=== PATIENT | male | born 1945 | race Two or more races ===

== ENCOUNTER 2023-11-18 11:51 | Emergency (ER) | payer OTHER ==
[~2023-11-18] VITALS: Ht 177.8 cm; Wt 66.1 kg
[2023-11-18] MEDS: HYDROcodone-ACET 5/325MG TAB PO ONE (15:33)
[2023-11-18 16:12] LABS: Basophils # (auto) 0.1 10 ^3/uL (0-0.2); Basophils % (auto) 0.4 % (0.0-2.0); Eosinophils # (auto) 0 10 ^3/uL (0-0.8); Hematocrit 40.8 % (41.0-53.0); Hemoglobin 13.4 g/dL (13.5-17.5); Lymphocytes # (auto) 1.6 10 ^3/uL (0.4-5.4); Lymphocytes % (auto) 9.8 % (10.0-50.0); Mean Corpuscular Hemoglobin 29.4 pg (28.0-32.0); Mean Corpuscular Volume 89.3 fL (80.0-100.0); Monocytes # (auto) 1.1 10 ^3/uL (0-1.3); Monocytes % (auto) 6.4 % (0.0-12.0); Neutrophils # (auto) 13.8 10 ^3/uL (1.6-8.6); Neutrophils % (auto) 83.4 % (37.0-80.0); Red Blood Cells 4.56 10^6/uL (4.5-5.90); Red Cell Distribution Width 13.8 % (11.8-14.3); White Blood Cell 16.6 10^3/uL (4.4-10.8)
[2023-11-18 16:43] LABS: Alanine Aminotransferase 21 U/L (7-40); Albumin 4.1 g/dL (3.2-4.8); Alkaline Phosphatase 113 U/L (46-116); Anion Gap 9 (5-15); Aspartate Aminotransferase 24 U/L (13-40); BUN/Creatinine Ratio 18.4 (10.0-20.0); Blood Urea Nitrogen 16 mg/dL (9-23); Calcium 8.6 mg/dL (8.7-10.4); Carbon Dioxide 24 mmol/L (20-30); Chloride 102 mmol/L (98-107); Glucose 112 mg/dL (74-106); Lipase 56 U/L (12-53); Potassium 4.6 mmol/L (3.5-5.1); Sodium 135 mmol/L (136-145)
[2023-11-18 16:44] LABS: Bilirubin, Total 1.1 mg/dL (0.2-1.0); Total Protein 6.9 g/dL (5.7-8.2)
[2023-11-18 20:51] VITALS: BP 127/72; PULSE 95; RESP 18; TEMP 97.8; O2SAT 96
== END 2023-11-18 21:28 | disposition short-term general hospital (02) ==
LOC: ER 11:51
DX: K12.2 Cellulitis and abscess of mouth (principal); M27.2 Inflammatory conditions of jaws
CPT/HCPCS: 36415; 70486; 80053; 83605; 83690; 85025

== ENCOUNTER 2025-06-08 17:54 | Emergency (ER) | payer OTHER ==
[~2025-06-08] VITALS: Ht 177.8 cm; Wt 72.7 kg
--- NOTE | 2025-06-08 18:17 | ED.PDOC ---
Altered Mental Status HPI Comments This is a 79 year old male BIB family presenting to the ED with chief complaint of ALOC. Patient's son reports that the patient has been increasingly confused and altered over the past month. Son relays that the patient then had multiple ground level falls today when trying to get out of bed multiple times despite him and his mother's insistence that the patient stay in bed. Son denies any head injury, medication overdose, dizziness, N/V, fever, chills, or chest pain. Chief Complaint: ALOC Time Seen by MD: 18:14 Primary Care Provider: ? Reviewed Notes: Nurses Notes, Medications, Allergies Allergies: Coded Allergies: NO KNOWN ALLERGIES (Unverified , 11/18/23) Information Source: Patient, Relative (Child), Spouse Mode of Arrival: Ambulatory Severity: Moderate Timing: Hours Duration: Since onset Prehospital treatment: None Quality: Decreased Alertness, Change in Behavior, Confusion Recent: None Past Medical History PAST MEDICAL HISTORY: High Lipids Surgical History (Other): Prostatectomy Family History Family History: Reviewed,noncontributory to illness, No family hx of Cancer, No family hx of DM, No family hx of Heart wilson, No family hx of HTN, No family hx ofKidney wilson, No family hx of Liver wilson, No family hx of Lung wilson, No family hx of Stroke Social History Smoker: Non-Smoker Alcohol: Denies ETOH Use Drugs: Denies Drug Use Lives In: Home Constitutional: denies: chills, diaphoresis, fatigue, fever, malaise, sweats, weakness, others EENTM: denies: blurred vision, double vision, ear bleeding, ear discharge, ear drainage, ear pain, ear ringing, eye pain, eye redness, hearing loss, mouth pain, mouth swelling, nasal discharge, nose bleeding, nose congestion, nose pain, photophobia, tearing, throat pain, throat swelling, voice changes, others Respiratory: denies: cough, hemoptysis, orthopnea, SOB at rest, shortness of breath, SOB with excertion, stridor, wheezing, others Cardiovascular: denies: chest pain, dizzy spells, diaphoresis, Dyspnea on exertion, edema, irregular heart beat, left arm pain, lightheadedness, pal pitations, PND, syncope, others Gastrointestinal: denies: abdomen distended, abdominal pain, blood streaked bowels, constipated, diarrhea, dysphagia, difficulty swallowing, hematemesis, melena, nausea, poor appetite, poor fluid intake, rectal bleeding, rectal pain, vomiting, others Genitourinary: denies: burning, dysuria, flank pain, frequency, hematuria, incontinence, penile discharge, penile sore, pain, testicle pain, testicle swelling, urgency, others Neurological: denies: dizziness, fainting, headache, left sided numbness, left sided weakness, numbness, paresthesia, pre-existing deficit, right sided numbness, right sided weakness, seizure, speech problems, tingling, tremors, weakness, others Musculoskeletal: denies: back pain, gout, joint pain, joint swelling, muscle pain, muscle stiffness, neck pain, others Integumetry: denies: bruises, change in color, change in hair/nails, dryness, laceration, lesions, lumps, rash, wounds, others Allergic/Immunocompromised: denies: Difficulty Healing, Frequent Infections, Hives, Itching, others Hematologic/Lymphatic: denies: anemia, blood clots, easy bleeding, easy bru ising, swollen glands, others Endocrine: denies: excessive hunger, excessive sweating, excessive thirst, e xcessive urination, flushing, intolerance to cold, intolerance to heat, unexplained weight gain, unexplained weight loss, others Psychiatric: denies: anxiety, bipolar disorder, depression, hopeless, panic disorder, schizophrenia, sleepless, suicidal, others Unable to Obtain due to: Altered Mental Status All Other Systems: Reviewed and Negative Physical Exam General Appearance: Moderate Distress, Other (The patient is confused) HEENT: Normal ENT Inspection, Pharynx Normal, TMs Normal Neck: Full Range of Motion, Non-Tender, Normal, Normal Inspection Respiratory: Chest Non-Tender, Lungs Clear, No Accessory Muscle Use, No Respiratory Distress, Normal Breath Sounds Cardiovascular: No Edema, No JVD, No Murmur, No Gallop, Normal Peripheral Pulses, Regular Rate/Rhythm Breast Exam: Deferred Gastrointestinal: No Organomegaly, Non Tender, No Pulsatile Mass, Normal Bowel Sounds, Soft Genitalia: Deferred Pelvic: Deferred Rectal: Deferred Extremities: No calf tenderness, Normal capillary refill, No pedal edema Musculoskeletal : Apperance: Normal 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 Was a procedure done?: No Differential Diagnosis (ALOC) Differential Diagnosis: Encephalopathy, Seizure, Closed Head Injury, CVA, Other (Altered mental status) X-Ray, Labs, Meds, VS Vital Signs Date Time Temp Pulse Resp B/P (MAP) Pulse Ox O2 Delivery O2 Flow Rate FiO2 06/08/25 20:30 97.6 67 14 148/63 (91) 94 97.6 06/08/25 18:17 82 06/08/25 18:07 82 06/08/25 17:56 98.2 95 16 138/94 86 98.2 Lab Test 06/08/25 18:22 Range/Units White Blood Count 8.3 4.4-10.8 10^3/uL Red Blood Count 4.74 4.5-5.90 10^6/uL Hemoglobin 14.7 13.5-17.5 g/dL Hematocrit 42.8 41.0-53.0 % Mean Corpuscular Volume 90.3 80.0-100.0 fL Mean Corpuscular Hemoglobin 31.0 28.0-32.0 pg Mean Corpuscular Hemoglobin Concent 34.4 32.0-36.0 g/dL Red Cell Distribution Width 13.5 11.8-14.3 % Platelet Count 195 140-450 10^3/uL Mean Platelet Volume 7.8 6.9-10.8 fL Neutrophils (%) (Auto) 68.2 37.0-80.0 % Lymphocytes (%) (Auto) 22.0 10.0-50.0 % Monocytes (%) (Auto) 7.7 0.0-12.0 % Eosinophils (%) (Auto) 1.4 0.0-7.0 % Basophils (%) (Auto) 0.7 0.0-2.0 % Neutrophils # (Auto) 5.7 1.6-8.6 10 ^3/uL Lymphocytes # (Auto) 1.8 0.4-5.4 10 ^3/uL Monocytes # (Auto) 0.6 0-1.3 10 ^3/uL Eosinophils # (Auto) 0.1 0-0.8 10 ^3/uL Basophils # (Auto) 0.1 0-0.2 10 ^3/uL Nucleated Red Blood Cells 0.0 % Sodium Level 137 136-145 mmol/L Potassium Level 3.9 3.5-5.1 mmol/L Chloride Level 103 98-107 mmol/L Carbon Dioxide Level 24 20-31 mmol/L Anion Gap 10 5-15 Blood Urea Nitrogen 11 9-23 mg/dL Creatinine 0.85 0.700-1.30 mg/dL Glomerular Filtration Rate Calc 89 >90 mL/min BUN/Creatinine Ratio 12.9 10.0-20.0 Serum Glucose 112 H 74-106 mg/dL Calcium Level 9.0 8.7-10.4 mg/dL IV Hep-Lock was established. The patient's CBC is within normal limits The chemistry panel is within normal limits CAT scan of the head shows: IMPRESSION: 1. No acute territorial infarct, intracranial hemorrhage, or mass effect. 2. Age-related involutional changes. Chronic microvascular changes. 3. If clinical symptoms persist, MRI may be beneficial in further evaluation. The patient is somewhat confused and every time he stands up he is having episodes of falls. The patient was here in the emergency department's and accidentally got up and fell down on the floor. The patient denies any head trauma at that time. The patient is being admitted. Images Reviewed?: Images reviewed and evaluated by me Time of 1ST Reevaluation: 20:40 Reevaluation 1ST: Unchanged Patient Education/Counseling: Other (The patient is somewhat confused) Family Education/Counseling: Diagnosis, Treatment, Prognosis SEPSIS Sepsis Screen Date sepsis recognized/suspect: Jun 08, 2025 Time Sepsis recognized/suspect: 1755 Recent Procedure: No On Antibiotic Therapy: No Respiratory Rate >20: No Heart Rate >90: No Temp<36 C (96.8 F) or >38.3 C: No SBP <90 or MAP <65 mmHG: No New Acute Mental Status Change: No Is the patient on CPAP, BIPAP,: No Physician Orders Urinalysis (06/08/25 18:14) Head Without Contrast (06/08/25 18:14) Behavioral Health Technician (06/08/25 18:14) Pulse Oximetry (06/08/25 18:14) Blood Pressure (06/08/25 18:14) Heplock Iv (06/08/25 18:14) Vital Signs Date Time Temp Pulse Resp B/P (MAP) Pulse Ox O2 Delivery O2 Flow Rate FiO2 06/08/25 20:30 97.6 67 14 148/63 (91) 94 97.6 06/08/25 18:17 82 06/08/25 18:07 82 06/08/25 17:56 98.2 95 16 138/94 86 98.2 Laboratory Tests Test 06/08/25 18:22 White Blood Count 8.3 10^3/uL (4.4-10.8) Departure 1 Departure Time of Disposition: 20:39 Impression: Primary Impression: Autonomic dysfunction Additional Impressions: Generalized weakness Confusion Disposition: ADMITTED INPATIENT Admit to: [facility] Condition: Fair Critical Care Note Critical Care Time?: Yes (35 min-critical care time only) Stability Stability form required: Yes Unstable for transfer: Telemetry monitoring (Telemetry monitoring required), ED Physician Assesment (Clinical assesment) Heart Score Heart Score: Heart Score Response (Comments) Value History N/A 0 EKG N/A 0 Age N/A 0 Risk Factors N/A 0 Troponin N/A 0 Total 0 I personally scribed for WANDA FRIEDMAN MD ([email or web address]) on 06/08/25 at 18:17. Electronically submitted by Lucius Velasquez ([email or web address]). WANDA FRIEDMAN MD Jun 08, 2025 18:17
[2025-06-08 18:40] LABS: Hematocrit 42.8 % (41.0-53.0); Hemoglobin 14.7 g/dL (13.5-17.5); Mean Corpuscular Hemoglobin 31.0 pg (28.0-32.0); Mean Corpuscular Volume 90.3 fL (80.0-100.0); Nucleated Red Blood Cells % 0.0 %
[2025-06-08 18:50] LABS: Chloride 103 mmol/L (98-107); Potassium 3.9 mmol/L (3.5-5.1); Sodium 137 mmol/L (136-145)
[2025-06-08 18:51] LABS: Anion Gap 10 (5-15); Calcium 9.0 mg/dL (8.7-10.4); Carbon Dioxide 24 mmol/L (20-31)
[2025-06-08 18:56] LABS: BUN/Creatinine Ratio 12.9 (10.0-20.0); Blood Urea Nitrogen 11 mg/dL (9-23)
[2025-06-08 18:59] LABS: Glucose 112 mg/dL (74-106)
--- NOTE | 2025-06-08 19:03 | ECG ---
[facility] Test Date: 2025-06-08 Test Time: 18:07:15 Pat Name: ELICEO MCMANUS Department: ED Room: Gender: M Occupational Therapy Technician: DR RICHARD: 1945 Requested By: WANDA FRIEDMAN Order Number: [id number] Reading MD: Measurements Intervals [place] Rate: 82 P: 63 WV: 162 QRS: -23 QRSD: 90 T: 51 QT: 371 QTc: 434 Interpretive Statements Sinus rhythm Borderline left axis deviation Low voltage, precordial leads Abnormal R-wave progression, early transition Baseline wander in lead(s) II,V3,V4 Please click the below link to view image of tracing.
--- NOTE | 2025-06-08 19:25 | DVH ---
EXAM: CT HEAD WITHOUT CONTRAST INDICATION: FERNANDEZ TECHNIQUE: CT of the head without intravenous contrast. Radiation Dose : 1. Head: CT Dose: CTDI volume is 48.15 mGy. Dose-length product is 847.18 mGy*cm The dose indicators for CT are the volume Computed Tomography (CT) Dose Index (CTDIvol) and the Dose Length Product (DLP), and are measured in units of mGy and mGy-cm, respectively. These indicators are not patient dose, but values generated from the CT scanner acquisition factors. The report includes radiation exposure data for exposures received during this examination. COMPARISON: CT MAXILLOFACIAL WITHOUT on DOS: 11/18/23 FINDINGS: No acute territorial infarct, intracranial hemorrhage, or mass effect. There are global involutional changes with compensatory prominence of the ventricles and sulci. Patchy periventricular and subcorti candy white matter hypoattenuation is nonspecific but may be related to small vessel ischemic disease. The orbits are normal. The paranasal sinuses and mastoid air cells are clear. The osseous structures are unremarkable. IMPRESSION: 1. No acute territorial infarct, intracranial hemorrhage, or mass effect. 2. Age-related involutional changes. Chronic microvascular changes. 3. If clinical symptoms persist, MRI may be beneficial in further evaluation. Radiation optimization: All CT scans at this facility use at least one of these dose optimization lynda hniques: automated exposure control mA and/or kV adjustment per patient size (includes targeted exam s where dose is matched to clinical indication) or iterative reconstruction.
[2025-06-08 22:10] LABS: Urine Protein, UAD Negative (Negative)
[2025-06-08 22:47] LABS: Amphetamine Screen, Urine Neg (NEGATIVE); Barbiturate Scree,Urine Neg (NEGATIVE); Benzodiazephine Screen, Urine Neg (NEGATIVE); Cocaine Screen, Urine Neg (NEGATIVE); Opiate Scree,Urine Neg (NEGATIVE)
[2025-06-08 22:48] LABS: Cannabinoid Screen, Urine Neg (NEGATIVE); Phencyclidine Screen, Urine Neg (NEGATIVE)
[2025-06-08 22:51] LABS: Free T4 (Free Thyroxine) 1.02 ng/dL (0.89-1.76)
[2025-06-08] MEDS: HALOPERIDOL LACTATE 5 MG/ML INJ VIAL IM ONE ×2 (23:19→23:40)
[2025-06-09] MEDS: MIRTAZAPINE 30 MG TAB PO ONE (00:35)
[2025-06-09 08:56] VITALS: BP 150/88; PULSE 92; RESP 17; TEMP 98.6; O2SAT 94
--- NOTE | 2025-06-09 19:45 | DVHINCON2 ---
DATE OF CONSULTATION: 06/09/2025 CHIEF COMPLAINT: Coming in for recurrent falls and confusion. HISTORY OF PRESENT ILLNESS: This is a 79-year-old male who was brought in by family secondary to recurrent falls and confusion. The patient has a significant past medical history for advanced dementia, which seems to be progressive, as well as history of agitation and insomnia. The patient during my evaluation is able to give me his name but does not know the time or place or situation. The patient is a very poor historian, able to follow some commands, but not all. The patient is trying to get out of bed and walk around during our assessment. The patient finally was able to follow instructions and lay back in bed and requested some food and water. Family is not at bedside. The son was contacted. The patient apparently has been having advanced dementia for over a year or two. The patient is typically alert to self and says that he knows some family members, but has forgotten the names of many others. In the last few days, the patient apparently has had recurrent falls and the family was concerned about this. The patient does tend to walk around at home, not staying in one place per the son. He does take medications for dementia to include donepezil, memantine and does take medication Remeron at nighttime in addition to Seroquel to help him with sleep. The son says that he does not get combative or abusive. He says, however, he has been getting worse as far as his abusive or agitated that most of the Seroquel was given to him to help him sleep at night, which he has difficulty with. Given that he has had this unsteady gait, they decided to bring him in for further evaluation. The patient has not had any fevers or chills at home or complaints of chest pain or shortness of breath or diarrhea. The patient did have a full assessment here to include a CT head, which showed no acute intracranial pathology and no leukocytosis and no underlying urinary tract infection. PAST MEDICAL HISTORY: Dementia, hyperlipidemia, insomnia. PAST SURGICAL HISTORY: Unknown. SOCIAL HISTORY: No tobacco, no alcohol, no illicit drug use. MEDICATIONS AT HOME: Per medical reconciliation. MEDICATION ALLERGIES: No known drug allergies. REVIEW OF SYSTEMS: Review of systems was limited as per history of present illness, gathered by the family. PHYSICAL EXAMINATION: VITAL SIGNS: Temp 97.6, pulse rate 67, respiratory rate 14, blood pressure 140/63, pulse ox 94-97% on room air. GENERAL: Seems to be alert to self, not to time or place or situation. male in no acute distress. HEENT: Normocephalic and atraumatic. Extraocular muscles seem to be intact. Pupils seem to be equally round and reactive to light and accommodation. Mucous membranes look moist. CARDIOVASCULAR: S1, S2 positive. Regular rate and rhythm. No rubs, gallops or murmurs. LUNGS: Seem to be clear to auscultation bilaterally. No rhonchi or rales. ABDOMEN: Seems to be soft, nontender, and nondistended. Positive for bowel sounds. No guarding. No rebound. EXTREMITIES: No lower extremity edema, clubbing or cyanosis. NEUROLOGIC: No focal deficits on examination. Cranial nerves 2-12 seems to be overall intact. LABORATORY WORKUP: Showed white count of 8.3, H and H of 14.7/42.8, white count 195,000. Sodium 137, potassium 3.9, chloride 103, carbon dioxide 24, anion gap of 10, BUN of 11, creatinine 0.85, glucose of 112, TSH of 4.14, free T4 of 1.02, and total T3 of 1.12 with an ammonia level of 18. Urinalysis was negative for nitrites, negative for leukocyte esterase. WBCs none. Urine toxicology screen was negative. IMAGING: Head CT was completed. It shows no acute territorial infarct, intracranial hemorrhage or mass effect, age-related involutional changes, chronic microvascular changes. Patchy periventricular and subcortical white matter hypoattenuation is nonspecific, but may be related to small vessel ischemic disease. DIAGNOSES: * Advanced dementia. * Other abnormalities of gait and mobility. PLAN: The patient was seen in the Emergency Room, full assessment was completed with the patient and evaluation for possibility of underlying infection leading to the patient's symptoms; however, the patient does have a history of dementia that seems to be progressive over the last 2 years. The patient at baseline is only alert to self and does not even recognize certain family members. Apparently per the son, the patient has been fidgeting and walking around at home and lately has been having more mobility issues than previously, leading to multiple falls. A CT of the head was completed which shows no acute intracranial pathology; however, it did show microvascular ischemic changes. These findings are likely consistent with underlying vascular dementia with which can also lead to abnormalities with gait and stability of mobility. The patient is at fall risk. Son has been informed of the patient's instability of gait due to his advanced dementia. It is my recommendation that the patient have supervisions at all time for fall risk as well as we will order the patient a front wheel walker to his home to use at all times; however, the patient will have challenges remembering to use his walker due to his advanced dementia. The son says that his sister has been trying to work with dementia facilities for about 4 months; however, the cost of facility at this time is too challenging for them to afford. We will order a home safety evaluation. The patient apparently does have home health with nursing staff going out to the house 4-5 times a week. In addition to this, we will order case management to see if there are any other avenues of help for the patient at home. We will arrange for a close PCP followup within the next week. We will refer him out to a neurologist to follow up with his dementia and gait instability. Son has also been informed that the patient will qualify for hospice at home and it is up to his discretion if he would like to put the patient on hospice and can further discuss this with the patient's primary care provider. The patient is to return to the Emergency Room in the case of any fevers, chills, chest pain, shortness of breath, focal neurological deficits, nausea, vomiting, or any other concerns or questions. All these follow ups will be arranged by [facility] Case Management. Elgin Preston MD LM/LILLIAN TID: [id number] RECEIPT: [id number] MTDD
== END 2025-06-09 09:09 | disposition home or self-care (01) ==
LOC: ER 17:54
DX: G90.9 Disorder of the autonomic nervous system, unspecified (principal); R53.1 Weakness; R41.0 Disorientation, unspecified; E78.5 Hyperlipidemia, unspecified; Z90.79 Acquired absence of other genital organ(s)
CPT/HCPCS: 36415; 70450; 80048; 80307; 81001; 82140; 82947; 84439; 84443; 84480; 85025; 93005; 96372; 99285; J1630